=== PATIENT | female | born 1975 | race African-American/Black ===

== ENCOUNTER 2019-05-29 09:14 | Emergency (ER) | payer MEDICAID ==
[~2019-05-29] VITALS: Ht 185.4 cm; Wt 100.0 kg
[2019-05-29] MEDS ORDERED: KETOROLAC 30MG/ML VIAL IM ONE (11:15)
[2019-05-29 12:33] VITALS: BP 128/79
== END 2019-05-29 12:34 | disposition home or self-care (01) ==
LOC: ER 09:20
DX: S16.1XXA Strain of muscle, fascia and tendon at neck level, initial encounter (principal); M54.5 Low back pain; V40.0XXA Car driver injured in collision with pedestrian or animal in nontraffic accident, initial encounter; Y93.89 Activity, other specified; Y92.89 Other specified places as the place of occurrence of the external cause; Y99.8 Other external cause status
CPT/HCPCS: 96372; 99283; J1885